=== PATIENT | female | born 1970 | race Caucasian/White ===

== ENCOUNTER 2020-03-12 18:34 | Emergency (ER) | payer SELFPAY ==
[2020-03-12 19:02] VITALS: BP 234/116; PULSE 113; RESP 20; TEMP 37.4; O2SAT 99; BMI 54.8
--- NOTE | 2020-03-12 21:49 | ED_ITS ---
Documented by User: HOME Francis 03/12/20 23:40 HPI - General Adult General: Chief complaint: General Medical Stated complaint: SOB, Sore throat Time Seen by Provider: 03/12/20 21:48 History of Present Illness: HPI narrative: Patient is a 49-year-old female who comes to the ED with sore throat and swallowing and neck. Patient has a PMH of diabetes and hypertension. Yesterday patient was seen at [facility] and she says they gave her a prescription for oral antibiotics. She says they did not swab her throat for strep. Patient says symptoms started 2 days ago. Started with a sore throat and then in the last 24 hours she has had more swelling in the neck. She says her voice is becoming more muffled and she is having difficulty doing any swallowing. She says she is unable to swallow her antibiotic pills that she received yesterday. She is also complaining that her airway seems to be partially obstructed and she feels like she has to take long slow deep breaths. She denies having any fevers. She had her tonsils and adenoids removed when she was 5 years old. She denies any vision changes, neurological symptoms such as weakness, numbness or loss of sensation to extremities. Patient states that her blood pressure usually runs high. Associated symptoms: Deny chest pain, dyspnea, headache(s), nausea, rash, palpitations or vomiting Review of Systems Const: Denies: fever, chills or fatigue Eyes: Denies: change in vision or eye discomfort ENMT: Reports: throat pain, painful swallowing and hoarseness (muffle sounding voice); Denies: nasal discharge or nasal congestion Card: Denies: chest pain, palpitations, edema, swelling of feet/ankles, shortness of breath on exertion or shortness of breath when lying down Resp: Denies: shortness of breath, productive cough or non-productive cough GI: Denies: abdominal pain, nausea, vomiting, diarrhea, constipation or blood in stool : Denies: flank pain, painful urination or blood in urine Musc: Denies: neck pain, back pain or extremity swelling Skin/Breast: Denies: rash or new lesion Neuro: Denies: headache, numbness in extremities or weakness in extremities PFS ED PFSH: Social History Smoking and tobacco status: never smoked Physical Exam Narrative: EXAM NARRATIVE: Patient is a 49-year-old female who is sitting on the exam bed when I enter the room. When she talks her voice sounds kind of muffled and she states that this is unusual for her. Const: COMMON NORMALS: oriented x3 HENMT: COMMON NORMALS: normocephalic and external nose normal HEAD & SCALP: normocephalic NOSE: external nose normal MOUTH: oral and palatal mucosa normal TEETH & GINGIVA: Yes caries and Yes poor dentition THROAT: uvula midline, posterior oropharynx abnormal erythema and exudates and tonsils absent Eye: COMMON NORMALS: PERRL, EOMs intact bilaterally, conjunctivae normal and normal visual g[place]am by confrontation CONJUNCTIVA: Yes conjunctivae normal PUPIL: Yes PERRL Neck/C-Spine: COMMON NORMALS: supple GENERAL: Yes normal visual inspection, Yes anterior neck swelling, Yes lymphadenopathy Lymphadenopathy location: anterior cervical tender, Yes tender (left anterior cervical neck tenderness) and Yes mass Resp: COMMON NORMALS: normal respiratory effort, no retractions, no use of accessory muscles and clear to auscultation bilaterally EFFORT & INSPECTION: Yes tachypneic (20 resp per min) AUSCULTATION: clear to auscultation bilaterally OTHER: Rattling and vibratory sound coming from throat during inspiration. Vibrations could be felt when palpating the neck during inspiration. Cardio: COMMON NORMALS: regular rate, regular rhythm, S1 normal heart sound, S2 normal heart sound, no gallops, no clicks, no murmurs and peripheral pulses 2+ throughout RATE: regular rate RHYTHM: regular rhythm HEART SOUNDS: S1 normal and S2 normal PERIPHERAL PULSES: pulses 2+ throughout GI: COMMON NORMALS: normal to inspection, nondistended, normoactive bowel sounds, soft to palpation, non-tender and no masses PALPATION: Yes soft : COMMON NORMALS: Yes no CVA tenderness BLADDER/KIDNEY EXAM: Yes no CVA tenderness Back/Pelvis: COMMON NORMALS: no CVA tenderness Extremity: COMMON NORMALS: normal to inspection and no pedal edema Neuro: COMMON NORMALS: oriented x3, CN's II-XII intact bilaterally, moves all extremities, no focal motor deficits and no sensory deficits noted MOTOR EXAM: strength 5/5 throughout Skin: COMMON NORMALS: no rashes or lesions noted GENERAL SKIN EXAM: no rashes or lesions noted and dry skin Course Vital Signs: Vital signs: Vital Signs Temperature 97.8 F 03/12/20 23:44 Pulse Rate 122 H 03/12/20 23:44 Respiratory Rate 18 03/12/20 23:44 Blood Pressure 200/89 03/12/20 23:44 Pulse Oximetry 95 03/12/20 23:44 MDM - General Adult MDM Narrative: Medical decision making narrative: Turned care over to Dr. Morrell due to epiglotitis finding on CT. Lab Data: Attestation: I reviewed the patient's lab results. Labs: Lab Results 03/12/20 03/12/20 03/12/20 Range/Units 22:08 22:08 22:15 WBC 14.5 H (4.0-10.0) 10^3/ uL RBC 5.42 H (4.1-5.3) 10^6/u L Hgb 13.5 (11.5-15.3) g/dL Hct 45.0 (37.0-47.0) % MCV 83.0 (81-99) fL MCH 24.9 L (28.0-34.0) pg MCHC 30.0 (30.0-36.0) g/dL RDW 14.7 (12.1-15.1) % Plt Count 287 (130-400) 10^3/c mm MPV 9.9 (7.4-10.4) fL Neut % (Auto) 74.1 % Lymph % (Auto) 16.7 % [place] % (Auto) 8.4 % Eos % (Auto) 0.1 % Baso % (Auto) 0.3 % Neut # (Auto) 10.7 H (1.8-7.7) 10^3/u L Lymph # (Auto) 2.4 (0.8-4.8) 10^3/u L [place] # (Auto) 1.2 H (0.2-0.9) 10^3/u L Eos # (Auto) 0.0 (0.0-0.8) 10^3/u L Baso # (Auto) 0.1 (0.0-0.1) 10^3/u L Nucleated RBC % (a uto) 0 % Nucleated RBCs # 0.0 /100WBC Sodium 137 (136-145) mmol/L Potassium 3.7 (3.5-5.1) mmol/L Chloride 100 (98-107) mmol/L Carbon Dioxide 22 (22-29) mmol/L Anion Gap 18.7 (5-19) BUN 14 (6-20) mg/dL Creatinine 0.6 (0.5-0.9) mg/dL GFR Calculation 105.8 (90-130) mL/min Glucose 270 H (65-115) mg/dL Calculated Osmolal ity 290 (285-295) mOsm/k g Calcium 9.6 (8.5-10.5) mg/dL Total Bilirubin 0.7 (0.15-1.2) mg/dL AST 20 (0-32) U/L ALT 24 (0-33) U/L Alkaline Phosphata se 92 (35-105) IU/L Total Protein 8.0 (6.6-8.7) g/dL Albumin 3.6 (3.5-5.2) g/dL Globulin 4.4 (1.3-4.6) g/dL Influenza Type A A g (Negative) Influenza Type B A g (Negative) Group A Strep Rapi d Negative (Negative) 03/12/20 Range/Units 22:15 WBC (4.0-10.0) 10^3/ uL RBC (4.1-5.3) 10^6/u L Hgb (11.5-15.3) g/dL Hct (37.0-47.0) % MCV (81-99) fL MCH (28.0-34.0) pg MCHC (30.0-36.0) g/dL RDW (12.1-15.1) % Plt Count (130-400) 10^3/c mm MPV (7.4-10.4) fL Neut % (Auto) % Lymph % (Auto) % [place] % (Auto) % Eos % (Auto) % Baso % (Auto) % Neut # (Auto) (1.8-7.7) 10^3/u L Lymph # (Auto) (0.8-4.8) 10^3/u L [place] # (Auto) (0.2-0.9) 10^3/u L Eos # (Auto) (0.0-0.8) 10^3/u L Baso # (Auto) (0.0-0.1) 10^3/u L Nucleated RBC % (a uto) % Nucleated RBCs # /100WBC Sodium (136-145) mmol/L Potassium (3.5-5.1) mmol/L Chloride (98-107) mmol/L Carbon Dioxide (22-29) mmol/L Anion Gap (5-19) BUN (6-20) mg/dL Creatinine (0.5-0.9) mg/dL GFR Calculation (90-130) mL/min Glucose (65-115) mg/dL Calculated Osmolal ity (285-295) mOsm/k g Calcium (8.5-10.5) mg/dL Total Bilirubin (0.15-1.2) mg/dL AST (0-32) U/L ALT (0-33) U/L Alkaline Phosphata se (35-105) IU/L Total Protein (6.6-8.7) g/dL Albumin (3.5-5.2) g/dL Globulin (1.3-4.6) g/dL Influenza Type A A g Negative (Negative) Influenza Type B A g Negative (Negative) Group A Strep Rapi d (Negative) Imaging Data^: Other CT: Attestation: I personally reviewed and interpreted this imaging study as follows: Radiologist's impression: [address] [address] [address] Scan Report Signed Patient: Margareth Lugo Unit #: [id number] : 1970 Age/Sex: 49 / F ADM Date: 03/12/20 Loc: ER Room/Bed: Attending Dr: Ordering Provider/Ordering MD: Miquel Villasenor Date of Service: 03/12/20 Procedure(s): CT neck w con* [id number] Accession Number(s): [id number] Report Number: [id number] PROCEDURE INFORMATION: Exam: CT Neck With Contrast Exam date and time: 03/12/2020 10:34 PM Age: 49 years old Clinical indication: Dysphagia / difficulty swallowing and other: Sore throat, muffled voice; Additional info: Sore throat, muffled voice, PT says airway feels obstructed TECHNIQUE: Imaging protocol: Computed tomography images of the neck with intravenous contrast. Sagittal and coronal reformatted images were created and reviewed. Total DLP: 759.83 mGy-cm Radiation optimization: All CT scans at this facility use at least one of these dose optimization techniques: automated exposure control; mA and/or kV adjustment per patient size (includes targeted exams where dose is matched to clinical indication); or iterative reconstruction. Contrast material: OMNI 300; Contrast volume: 95 ml; Contrast route: IV; COMPARISON: No relevant prior studies available. FINDINGS: Orbits: Globes and lenses, extraocular muscles, and optic nerves are intact bilaterally. No acute intraorbital abnormality. Sinuses: Mild mucoperiosteal thickening in the the right maxillary sinus. Other paranasal sinuses are clear. Nasopharynx: The nasopharynx is unremarkable. Oropharynx: The oropharynx is unrermarkable. No significant tonsillar enlargement. No tonsillar or peritonsillar abscess. Hypopharynx: See Larynx finding. Larynx: There is thickening and edema of the epiglottis and aryepiglottic folds bilaterally, consistent with epiglottitis. This is causing mild to moderate narrowing of the hypopharyngeal airway. Retropharyngeal space: The retropharyngeal space is unrermarkable. Submandibular/Parotid glands: The right and left parotid glands are unremarkable. The right and left submandibular glands are unremarkable. Thyroid: Low-density nodules with areas of calcification and rim calcification in the thyroid, the larger is in the right thyroid lobe and measures 1.7 x 1.6 cm (series 3, image 81). A mostly solid nodule in the inferior right thyroid lobe measures 2.6 x 2.6 cm (series 3, image 86). There is mild leftward deviation of the lower cervical trachea by the right thyroid lobe without tracheal narrowing at this level. Lymph nodes: Mildly enlarged lymph nodes bilaterally measuring up to 1.1 cm (series 3, image 7). Hypertrophied lymphoid tissue in the vallecular. Trachea: Trachea is midline and patent. Lungs: Visualized lungs are clear. Vasculature: Mild atherosclerotic changes in the visualized arteries. Dental: Cavitary and periodontal disease involving multiple maxillary and mandibular teeth. Mastoid air cells: Mastoid air cells are clear bilaterally. Bones/joints: Reversal of normal cervical lordosis. Mild degenerative changes in the visualized spine. Soft tissues: No loculated fluid collections to suggest an abscess. No radiopaque foreign body. CT/CT neck w con* [id number] IMPRESSION: 1. There is thickening and edema of the epiglottis and aryepiglottic folds bilaterally, consistent with epiglottitis. This is causing mild to moderate narrowing of the hypopharyngeal airway. No evidence for an abscess. 2. Mild mucoperiosteal thickening in the the right maxillary sinus. 3. Cavitary and periodontal disease involving multiple maxillary and mandibular teeth. 4. Multiple thyroid nodules. Mild left deviation of the lower cervical trachea by the right thyroid lobe. Recommend follow-up thyroid ultrasound on a nonemergent basis. 5. Nonspecific cervical lymphadenopathy, which could be reactive in nature. Followup imaging recommended to insure stability/resolution however. 6. Incidental/nonacute findings are listed in the report. COMMENTS: Consistent with the [employer]'s Incidental Findings Committee white paper (J Am Lexx Radiol 2015): In patients aged 35 years and older with an incidental thyroid nodule equal to or greater than 1.[address], MRI or extrathyroidal US, further evaluation with dedicated thyroid US is recommended for patients with normal life expectancy and without comorbidities. For smaller nodules without suspicious features, no further evaluation or follow up is recommended. Radiation Dose CTDIVOL = (mGy): DLP = 759.83 (mGy-cm) Dictated By: Jade Martinez MD Signed By: Jade Martinez MD Signed Date/Time: 03/12/202319 DD/ Discharge Plan Discharge Patient Disposition: Xfer Short-Term Hosp Clinical Impression: Acute epiglottitis with airway obstruction Condition: Stable Discharge Date/Time: 03/13/20 00:00 Coding Level of Care Code ED Oncology Social Work for Chg Fwd Exam Comprehensive Documented by User: Carol Morrell 03/13/20 01:21 HPI - General Adult General: Chief complaint: General Medical Stated complaint: SOB, Sore throat Time Seen by Provider: 03/12/20 21:48 PFS ED PFSH: Social History Smoking and tobacco status: never smoked Course Vital Signs: Vital signs: Vital Signs Temperature 97.8 F 03/12/20 23:44 Pulse Rate 122 H 03/12/20 23:44 Respiratory Rate 18 03/12/20 23:44 Blood Pressure 200/89 03/12/20 23:44 Pulse Oximetry 95 03/12/20 23:44 MDM - General Adult MDM Narrative: Medical decision making narrative: 2335 - CT results were communicated to me by Zack [email or web address]. Upon my examination the patient's vital signs are stable she is able to speak with a hoarse voice but is able to handle her own secretions and is not in a tripod position. I have ordered Decadron and Cleocin. I reviewed the case with Dr. Basurto at [facility] as we do not have ENT or oral maxillofacial surgery backup here. He will accept the patient in transfer and agrees with this therapy. At this time the patient is able to speak, she can handle her own secretions and is not in distress. On oral exam I do not see any erythema and I do not see that the epiglottis in the oropharynx. I do not believe a prophylactic endotracheal tube is necessary at this time and as we can transfer her by air ambulance, they are currently here waiting to take the patient. I believe she could be watched in ICU at [facility] and if necessary she can be taken to the OR for intubation or achy ostomy if necessary. Lab Data: Labs: Lab Results 03/12/20 03/12/20 03/12/20 Range/Units 22:08 22:08 22:15 WBC 14.5 H (4.0-10.0) 10^3/ uL RBC 5.42 H (4.1-5.3) 10^6/u L Hgb 13.5 (11.5-15.3) g/dL Hct 45.0 (37.0-47.0) % MCV 83.0 (81-99) fL MCH 24.9 L (28.0-34.0) pg MCHC 30.0 (30.0-36.0) g/dL RDW 14.7 (12.1-15.1) % Plt Count 287 (130-400) 10^3/c mm MPV 9.9 (7.4-10.4) fL Neut % (Auto) 74.1 % Lymph % (Auto) 16.7 % [place] % (Auto) 8.4 % Eos % (Auto) 0.1 % Baso % (Auto) 0.3 % Neut # (Auto) 10.7 H (1.8-7.7) 10^3/u L Lymph # (Auto) 2.4 (0.8-4.8) 10^3/u L [place] # (Auto) 1.2 H (0.2-0.9) 10^3/u L Eos # (Auto) 0.0 (0.0-0.8) 10^3/u L Baso # (Auto) 0.1 (0.0-0.1) 10^3/u L Nucleated RBC % (a uto) 0 % Nucleated RBCs # 0.0 /100WBC Sodium 137 (136-145) mmol/L Potassium 3.7 (3.5-5.1) mmol/L Chloride 100 (98-107) mmol/L Carbon Dioxide 22 (22-29) mmol/L Anion Gap 18.7 (5-19) BUN 14 (6-20) mg/dL Creatinine 0.6 (0.5-0.9) mg/dL GFR Calculation 105.8 (90-130) mL/min Glucose 270 H (65-115) mg/dL Calculated Osmolal ity 290 (285-295) mOsm/k g Calcium 9.6 (8.5-10.5) mg/dL Total Bilirubin 0.7 (0.15-1.2) mg/dL AST 20 (0-32) U/L ALT 24 (0-33) U/L Alkaline Phosphata se 92 (35-105) IU/L Total Protein 8.0 (6.6-8.7) g/dL Albumin 3.6 (3.5-5.2) g/dL Globulin 4.4 (1.3-4.6) g/dL Influenza Type A A g (Negative) Influenza Type B A g (Negative) Group A Strep Rapi d Negative (Negative) 03/12/20 Range/Units 22:15 WBC (4.0-10.0) 10^3/ uL RBC (4.1-5.3) 10^6/u L Hgb (11.5-15.3) g/dL Hct (37.0-47.0) % MCV (81-99) fL MCH (28.0-34.0) pg MCHC (30.0-36.0) g/dL RDW (12.1-15.1) % Plt Count (130-400) 10^3/c mm MPV (7.4-10.4) fL Neut % (Auto) % Lymph % (Auto) % [place] % (Auto) % Eos % (Auto) % Baso % (Auto) % Neut # (Auto) (1.8-7.7) 10^3/u L Lymph # (Auto) (0.8-4.8) 10^3/u L [place] # (Auto) (0.2-0.9) 10^3/u L Eos # (Auto) (0.0-0.8) 10^3/u L Baso # (Auto) (0.0-0.1) 10^3/u L Nucleated RBC % (a uto) % Nucleated RBCs # /100WBC Sodium (136-145) mmol/L Potassium (3.5-5.1) mmol/L Chloride (98-107) mmol/L Carbon Dioxide (22-29) mmol/L Anion Gap (5-19) BUN (6-20) mg/dL Creatinine (0.5-0.9) mg/dL GFR Calculation (90-130) mL/min Glucose (65-115) mg/dL Calculated Osmolal ity (285-295) mOsm/k g Calcium (8.5-10.5) mg/dL Total Bilirubin (0.15-1.2) mg/dL AST (0-32) U/L ALT (0-33) U/L Alkaline Phosphata se (35-105) IU/L Total Protein (6.6-8.7) g/dL Albumin (3.5-5.2) g/dL Globulin (1.3-4.6) g/dL Influenza Type A A g Negative (Negative) Influenza Type B A g Negative (Negative) Group A Strep Rapi d (Negative) Discharge Plan Discharge Patient Disposition: Xfer Short-Term Hosp Clinical Impression: Acute epiglottitis with airway obstruction Condition: Stable Discharge Date/Time: 03/13/20 00:00 Coding Level of Care Code ED Oncology Social Work for Santana Fwedith Exam Comprehensive
--- NOTE | 2020-03-12 22:00 | CTR_ITS ---
PROCEDURE INFORMATION: Exam: CT Neck With Contrast Exam date and time: 03/12/2020 10:34 PM Age: 49 years old Clinical indication: Dysphagia / difficulty swallowing and other: Sore throat, muffled voice; Additional info: Sore throat, muffled voice, PT says airway feels obstructed TECHNIQUE: Imaging protocol: Computed tomography images of the neck with intravenous contrast. Sagittal and coronal reformatted images were created and reviewed. Total DLP: 759.83 mGy-cm Radiation optimization: All CT scans at this facility use at least one of these dose optimization techniques: automated exposure control; mA and/or kV adjustment per patient size (includes targeted exams where dose is matched to clinical indication); or iterative reconstruction. Contrast material: OMNI 300; Contrast volume: 95 ml; Contrast route: IV; COMPARISON: No relevant prior studies available. FINDINGS: Orbits: Globes and lenses, extraocular muscles, and optic nerves are intact bilaterally. No acute intraorbital abnormality. Sinuses: Mild mucoperiosteal thickening in the the right maxillary sinus. Other paranasal sinuses are clear. Nasopharynx: The nasopharynx is unremarkable. Oropharynx: The oropharynx is unrermarkable. No significant tonsillar enlargement. No tonsillar or peritonsillar abscess. Hypopharynx: See Larynx finding. Larynx: There is thickening and edema of the epiglottis and aryepiglottic folds bilaterally, consistent with epiglottitis. This is causing mild to moderate narrowing of the hypopharyngeal airway. Retropharyngeal space: The retropharyngeal space is unrermarkable. Submandibular/Parotid glands: The right and left parotid glands are unremarkable. The right and left submandibular glands are unremarkable. Thyroid: Low-density nodules with areas of calcification and rim calcification in the thyroid, the larger is in the right thyroid lobe and measures 1.7 x 1.6 cm (series 3, image 81). A mostly solid nodule in the inferior right thyroid lobe measures 2.6 x 2.6 cm (series 3, image 86). There is mild leftward deviation of the lower cervical trachea by the right thyroid lobe without tracheal narrowing at this level. Lymph nodes: Mildly enlarged lymph nodes bilaterally measuring up to 1.1 cm (series 3, image 7). Hypertrophied lymphoid tissue in the vallecular. Trachea: Trachea is midline and patent. Lungs: Visualized lungs are clear. Vasculature: Mild atherosclerotic changes in the visualized arteries. Dental: Cavitary and periodontal disease involving multiple maxillary and mandibular teeth. Mastoid air cells: Mastoid air cells are clear bilaterally. Bones/joints: Reversal of normal cervical lordosis. Mild degenerative changes in the visualized spine. Soft tissues: No loculated fluid collections to suggest an abscess. No radiopaque foreign body. CT/CT neck w con* [id number] IMPRESSION: 1. There is thickening and edema of the epiglottis and aryepiglottic folds bilaterally, consistent with epiglottitis. This is causing mild to moderate narrowing of the hypopharyngeal airway. No evidence for an abscess. 2. Mild mucoperiosteal thickening in the the right maxillary sinus. 3. Cavitary and periodontal disease involving multiple maxillary and mandibular teeth. 4. Multiple thyroid nodules. Mild left deviation of the lower cervical trachea by the right thyroid lobe. Recommend follow-up thyroid ultrasound on a nonemergent basis. 5. Nonspecific cervical lymphadenopathy, which could be reactive in nature. Followup imaging recommended to insure stability/resolution however. 6. Incidental/nonacute findings are listed in the report. COMMENTS: Consistent with the [employer]'s Incidental Findings Committee white paper (J Am Lexx Radiol 2015): In patients aged 35 years and older with an incidental thyroid nodule equal to or greater than 1.[address], MRI or extrathyroidal US, further evaluation with dedicated thyroid US is recommended for patients with normal life expectancy and without comorbidities. For smaller nodules without suspicious features, no further evaluation or follow up is recommended. Radiation Dose CTDIVOL = (mGy): DLP = 759.83 (mGy-cm)
[2020-03-12 22:20] LABS: Basophils # 0.1 10^3/uL (0.0-0.1); Basophils % 0.3 %; Eosinophils % 0.1 %; Hemoglobin 13.5 g/dL (11.5-15.3); Lymphocytes # 2.4 10^3/uL (0.8-4.8); Lymphocytes % 16.7 %; Mean Corpuscular Hemoglobin 24.9 pg (28.0-34.0); Mean Platelet Volume 9.9 fL (7.4-10.4); Monocytes # 1.2 10^3/uL (0.2-0.9); Monocytes % 8.4 %; Neutrophils # 10.7 10^3/uL (1.8-7.7); Neutrophils % 74.1 %; Nucleated Red Blood Cells % 0 %; Platelet Count 287 10^3/cmm (130-400); Red Blood Count 5.42 10^6/uL (4.1-5.3); Red Cell Distribution Width 14.7 % (12.1-15.1); White Blood Count 14.5 10^3/uL (4.0-10.0)
[2020-03-12 22:29] LABS: Alanine Aminotransferase 24 U/L (0-33); Albumin Level 3.6 g/dL (3.5-5.2); Alkaline Phosphatase 92 IU/L (35-105); Anion Gap 18.7 (5-19); Aspartate Amino Transferase 20 U/L (0-32); Blood Urea Nitrogen 14 mg/dL (6-20); Calcium 9.6 mg/dL (8.5-10.5); Carbon Dioxide 22 mmol/L (22-29); Chloride 100 mmol/L (98-107); Globulin 4.4 g/dL (1.3-4.6); Glomerular Filtration Rate 105.8 mL/min (90-130); Glucose 270 mg/dL (65-115); Osmolality Calculated 290 mOsm/kg (285-295); Potassium 3.7 mmol/L (3.5-5.1); Sodium 137 mmol/L (136-145); Total Bilirubin 0.7 mg/dL (0.15-1.2)
[2020-03-12 22:34] VITALS: BP 204/118; O2SAT 97
[2020-03-12 22:35] VITALS: BP 204/118; O2SAT 96
[2020-03-12 22:50] LABS: Rapid Strep A Test Negative (Negative)
[2020-03-12 23:01] LABS: Influenza A by IFA Negative (Negative); Influenza B by IFA Negative (Negative)
[2020-03-12] MEDS: iohexol 300 mg/mL 100 mL Btl IV (23:27)
[2020-03-12] MEDS: dexamethasone 10 mg/mL INJ IVP ×2 (23:41)
[2020-03-12] MEDS: clindamycin 900 MG/50 ML PREMIX 100 MG IV (23:42)
[2020-03-12 23:44] VITALS: BP 200/89; PULSE 122; RESP 18; TEMP 36.6; O2SAT 95
== END 2020-03-13 | disposition short-term general hospital (02) ==
PROVIDERS: Physician Assistant; Emergency Provider Emergency Medicine
DX: J05.11 Acute epiglottitis with obstruction (principal)
CPT/HCPCS: 12345; 36415; 70491; 80053; 85025; 87040; 87081; 87205; 87804; 87880; 96365; 96375; 99283; 99285; J1100; J3490; J7030; Q9967